=== PATIENT | male | born 1960 | race Caucasian/White ===

== ENCOUNTER 2019-03-21 18:14 | Inpatient (IN) | payer SELFPAY ==
[~2019-03-21] VITALS: Ht 175.3 cm; Wt 123.8 kg
--- NOTE | 2019-03-21 18:14 | NUR ---
BIB RA 881 FROM HOME,C/O GENERALIZED BODY PAIN SINCE HE FELL GETTING OUT OF BED A WEEK AGO, PT AWAKE, ALERT, -SOB, NAD NOTED, VSS, PENDING MD RÍOS
[2019-03-21] MEDS ORDERED: FUROSEMIDE 40 MG/4 ML VIAL IV ONE (19:30)
[2019-03-21] MEDS ORDERED: FUROSEMIDE 40 MG/4 ML VIAL ONE (19:58)
[2019-03-21 20:08] LABS: CALCIUM, SERUM 9.6 mg/dL (8.5-10.1); CARBON DIOXIDE 30 mmol/L (21-32); CHLORIDE 105 mmol/L (98-107); CREATININE 0.8 mg/dL (0.6-1.3); GLUCOSE 93 mg/dL (74-106); POTASSIUM 4.2 mmol/L (3.5-5.1); SODIUM SERUM 142 mmol/L (136-145); UREA NITROGEN, BLOOD 13 mg/dL (7-18)
[2019-03-21 20:23] LABS: BASOPHILS % (AUTO) 0.3 % (0.0-2.0); EOSINOPHILS % (AUTO) 0.8 % (0.0-6.0); HEMATOCRIT 43 % (39-51); HEMOGLOBIN 14.2 g/dL (13.5-17.5); LYMPHOCYTES % (AUTO) 13.3 % (20.0-44.0); MEAN CORPUSCULAR HGB CONC 33 g/dl (31.0-36.0); MEAN CORPUSCULAR VOLUME 91 fL (80-96); MONOCYTES # (AUTO) 0.9 /CMM (0.1-1.30); NEUTROPHILS # (AUTO) 5.8 /CMM (1.8-8.9); NEUTROPHILS % (AUTO) 74.6 % (43.0-81.0); PLATELET COUNT (AUTO) 214 /CMM (150-450); WHITE BLOOD COUNT (AUTO) 7.8 K/uL (4.3-11.0)
--- NOTE | 2019-03-21 20:25 | NUR ---
URINE COLLECTED AND SENT TO LAB
[2019-03-21 20:26] LABS: ALANINE AMINOTRANSFERASE 20 U/L (12-78); ALBUMIN 3.7 g/dL (3.4-5.0); ALKALINE PHOSPHATASE 84 U/L (46-116); ASPARTATE AMINOTRANSFERASE 17 U/L (15-37); BILIRUBIN,DIRECT 0.1 mg/dL (0.0-0.2); BILIRUBIN,TOTAL 0.7 mg/dL (0.2-1.0); TOTAL PROTEIN, SERUM 7.1 g/dL (6.4-8.2)
--- NOTE | 2019-03-21 20:40 | NUR ---
panel call in progress
--- NOTE | 2019-03-21 20:42 | NUR ---
called rn sup for bed, waiting for bed assignment
[2019-03-21 20:48] LABS: APPEARANCE,URINE Clear (CLEAR); BILIRUBIN,URINE SMALL (NEGATIVE); BLOOD, URINE Negative Ery/uL (NEGATIVE); COLOR,URINE Yellow (YELLOW); KETONES,URINE 40 (NEGATIVE); LEUKOCYTE ESTERASE ,URINE Negative (NEGATIVE); NITRITE, URINE Negative (NEGATIVE); PROTEIN,URINE Negative (NEGATIVE); UGLUCOSE Negative (NEGATIVE)
[2019-03-21 21:01] LABS: BACTERIA,URINE None seen /HPF (None Seen); RBC,URINE 0-2 /HPF (0-2); SQUAMOUS EPITHELIAL CELL,UR Few /HPF (None Seen); WBC,URINE 0-2 /HPF (0-3)
[2019-03-21] MEDS ORDERED: MAG HYDROX/AL HYDROX/SIMETH 30 ML UDC PO PRN (21:30)
[2019-03-21] MEDS ORDERED: ONDANSETRON HCL/PF 4 MG/2 ML VIAL IVP PRN (21:30)
[2019-03-21] MEDS ORDERED: MAGNESIUM HYDROXIDE 30 ML UDC PO PRN (21:30)
[2019-03-21] MEDS ORDERED: ACETAMINOPHEN 325 MG TABLET PO PRN (21:30)
[2019-03-21] MEDS ORDERED: Z GUARD REMEDY 2 OZ OINT TP PRN (21:30)
[2019-03-21] MEDS ORDERED: ZOLPIDEM TARTRATE 5 MG TABLET PO PRN (21:30)
[2019-03-21 22:00] VITALS: BP 147/89
--- NOTE | 2019-03-21 22:00 | NUR ---
MS/RN NEW ADMISSION NOTES RECEIVED PATIENT ON A GURNEY ACCOMPANIED BY RN AND ER ATTENDANT, PATIENT AWAKE, ALERT X3, REQUIRE ASSISTANCE IN ALL ADLS, UNABLE TO STAND UNASSISTED AND WITH LOWER LEG AND FEET PAIN BILATERAL.,MORBID OBESE WITH SWOLLEN AND RED INFLAMED BILATERAL LEGS WHO LIVES ALONE AND OCCASIONAL HELP , WITH DX OF BLE EDEMA AND PAIN. REPORTE NO MEDICATION TAKEN EXCEPT NEEDED OVER THE COUNTER ALEVE, PATIENT REQUIRE PT, LOVENOX, PAIN MANAGEMEMT, CASE MANAGEMENT AND KENO CLERK, REPORTED NO INSURANCE. PHOTOS TAKEN ON WOUND. USES URINAL AND ON LASIX TO RELIEVE EDEMA. WILL MONITOR. BELONGINGS RECEIVED AND CHECK, WITH MONEY AND CREDIT CARDS, AND HOUSE KEYS TO BE KEPT SAFE OF LINING MECHANIC. WILL MONITOR.BED LOCKED, CALL LIGHTS WITHIN REACH.
--- NOTE | 2019-03-21 22:01 | NUR ---
PT TRANSPORTED TO 2ND FLOOR MS
[2019-03-21] MEDS: ENOXAPARIN SODIUM 40 MG/0.4 ML DISP.SYRIN SQ SCH (23:25)
[2019-03-21] MEDS: FUROSEMIDE 40 MG/4 ML VIAL IV SCH (23:27)
[2019-03-22 00:19] VITALS: BP 147/89
[2019-03-22] MEDS: HYDROCODONE/APAP 5/325MG 1 EACH TABLET PO PRN ×2 (01:22→10:05)
--- NOTE | 2019-03-22 02:19 | NUR ---
MS/RN NOTES PER LIANG ALEJO, ACCEPTING DOCTOR ORDERED FOR VANCOMYCIN PHARMACY TO DOSE ON BLE LEG CELLULITIS. ORDER CARRIED OUT.
[2019-03-22] MEDS ORDERED: VANCOMYCIN 1 GM VIAL ONE (02:26)
[2019-03-22] MEDS ORDERED: VANCOMYCIN 1 GM in IV D5W 250 ML IV ONE (02:30)
--- NOTE | 2019-03-22 03:53 | NUR ---
MS/RN NOTES MS TAVERA ORDERED FOR EKG, RT AT BEDSIDE. TO MONITOR.
[2019-03-22] MEDS: FUROSEMIDE 40 MG/4 ML VIAL IV SCH ×3 (05:55→17:39)
--- NOTE | 2019-03-22 06:34 | NUR ---
MS/RN CLOSING NOTES PATIENT ABLE TO SLEEP FEW HOURS, REPOSITIONED FOR COMFORT, OFF LOAD EXTREMITIED, WOUUND DRESSING AND TREATMENT DONE. ANTIBIOTIC VANCO GIVEN PER MD ORDER , MONITORED FOR PAIN. KEPT SKIN INTACT AND DRY, ASSISTED WITH URINAL, LASIX ORDERED FOR SWOLLEN AND EDEMA ON BLE. KEPT CALL LIGHTS AND BELONGINGS WITHIN REACH. WILL ENDORE TO AM RN FOR NADIA. BED LOCKED.
--- NOTE | 2019-03-22 07:20 | NUR ---
MS RN NOTES RECEIVED PATIENT IN BED, AWAKE, A/O X 3. PATIENT ON ROOM AIR BREATHING EVENLY AND UNLABORED WITH NO ACUTE SIGNS OF DISTRESS. RAC GAUGE # 20 PRESENT AND INTACT. FLUSHING WELL AND NO SIGNS OF INFILTRATION AT THIS TIME. SAFETY PRECAUTIONS IN PLACE: BED IN LOW POSITION AND LOCKED, RAILS UP X 2, CALL LIGHT WITHIN REACH. WILL CONTINUE TO MONITOR PATIENT.
[2019-03-22 07:21] LABS: BASOPHILS % (AUTO) 0.7 % (0.0-2.0); EOSINOPHILS % (AUTO) 1.9 % (0.0-6.0); HEMATOCRIT 42 % (39-51); LYMPHOCYTES # (AUTO) 1.6 /CMM (0.8-4.8); LYMPHOCYTES % (AUTO) 25.5 % (20.0-44.0); MEAN CORPUSCULAR HGB CONC 33 g/dl (31.0-36.0); MEAN CORPUSCULAR VOLUME 91 fL (80-96); MONOCYTES # (AUTO) 0.9 /CMM (0.1-1.30); MONOCYTES % (AUTO) 14.5 % (2.0-12.0); NEUTROPHILS # (AUTO) 3.5 /CMM (1.8-8.9); NEUTROPHILS % (AUTO) 57.4 % (43.0-81.0); PLATELET COUNT (AUTO) 221 /CMM (150-450); RED BLOOD CELL COUNT(AUTO) 4.64 MIL/uL (4.5-6.0); WHITE BLOOD COUNT (AUTO) 6.1 K/uL (4.3-11.0)
[2019-03-22] MEDS ORDERED: FEE PK DOSING 1 MIN EA MC ONE (07:22)
[2019-03-22 07:54] LABS: CALCIUM, SERUM 9.1 mg/dL (8.5-10.1); CREATININE 0.9 mg/dL (0.6-1.3); PHOSPHORUS 4.7 mg/dL (2.5-4.9); POTASSIUM 3.9 mmol/L (3.5-5.1)
[2019-03-22 08:35] VITALS: BP 127/63
[2019-03-22 08:49] LABS: THYROID STIMULATING HORMONE 1.548 uIU/mL (0.358-3.74)
[2019-03-22] MEDS: VANCOMYCIN 1.25 GM in IV D5W 250 ML IV SCH ×2 (09:40→22:20)
--- NOTE | 2019-03-22 10:27 | NUR ---
WOUND CARE CONSULT: PT PRESENTS WITH LEFT LOWER LEG WOUND, REDNESS WITH EDEMA TO LOWER LEGS, AND RASHES TO ABDOMINAL/GROIN FOLDS, PERINEUM AND INNER BUTTOCKS, PRESENT ON ADMISSION. RECOMMEND DPM CONSULT. RECOMMENDATIONS MADE FOR SKIN CARE AND PROTECTION. DISCUSSED WITH NURSING STAFF. DEFER TO PODIATRY FOR LOWER EXTREMITIES. WILL SEE PRN. CURRENT RAMIREZ SCORE IS 15. MD IN AGREEMENT WITH PLAN OF CARE. Addendum: 03/22/19 at 1029 by JANE HOUSTON WNDNU Amended: Links added.
[2019-03-22] MEDS: CLOTRIMAZOLE 1% 15 GM TUBE TP SCH ×2 (11:33→16:59)
--- NOTE | 2019-03-22 12:03 | NUR ---
Social service consult requested by Dr. Garcia for transitional care and help with insurance. Pt. is a 58 year old male who was admitted to [facility] for edema/weakness. SW met with the pt. bedside. Pt. is alert and oriented x 4. Pt's friend's were visiting bedside. Pt's friend's left the room while SW conducted the assessment. Pt. states he resides in an apartment located at [address] [place] [address], [address] in [place]. Pt. states he has a friend who assists him in getting groceries etc. 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 fell at work and has been on disability and workers compensation. Pt. states, he lost his medical insurance is June and has no medical coverage at this time. [facility] dispute coordinator has met with the pt. and will refer pt. to insurance liaison if required. Pt. has an tax associate attorney representing him for his workers compensation case. Pt. has ACCESS transportation to his medical appointments that was set up by workers comp. Pt. states he feels depressed and anxious at times and has suicidal ideations once in a while, however he has no plan and stated, " I know better than to hurt myself." Pt currently denies suicidal and homicidal ideations. Pt. does not take any psychotropic medications. Pt. does not smoke cigarettes or use drugs. Pt. states, he drinks whiskeyonce in a while. Pt. states he would like to try CBD oil for his pain. Pt. currently does not receive any home health services at home. marketing development manager to follow up with the pt. in regards to board and care facility since pt. needs assistance with his ADL's. No other social service needs are requested at this time. SW is available, if needed.
[2019-03-22 17:01] VITALS: BP 146/77
--- NOTE | 2019-03-22 18:47 | NUR ---
MS RN CLOSING NOTES PATIENT IN BED ASLEEP AT THIS TIME. A/O X4. ABLE TO MAKE NEEDS KNOWN, BREATHING EFFORTLESSLY ON ROOM AIR WITH NO SIGNS OF SOB PRESENT. SL ON RIGHT AC PATENT, INTACT AND FLUSHING WELL. NO SIGNS OF INFILTRATION NOTED AT THE SITE NOTED. ALL NEEDS AND CARE PROVIDED DURING THE SHIFT. SAFETY PRECAUTIONS IN PLACE: BED IN LOW POSITION AND LOCKED, RAILS UP X 2, CALL LIGHT WITHIN REACH. WILL ENDORSE TO DIE REPAIRER STAMPING NURSE FOR NADIA.
--- NOTE | 2019-03-22 20:00 | NUR ---
MS RN NOTES RECEIVED PATIENT ASLEEP IN BED WITH NO DISTRESS NOTED. CALL LIGHT WITHIN REACH. PERIPHERAL LINE INTACT AND PATENT. ROOM FREE OF CLUTTER AND BELONGINGS KEPT NEAR BEDSIDE. BED IN LOW LOCK SETTING WITH BED ALARM ON AND FUNCTIONING PROPERLY. WILL CONTINUE TO MONITOR
[2019-03-22 20:50] VITALS: BP 117/62
[2019-03-22] MEDS: ENOXAPARIN SODIUM 40 MG/0.4 ML DISP.SYRIN SQ SCH (22:20)
[2019-03-23] MEDS: FUROSEMIDE 40 MG/4 ML VIAL IV SCH ×5 (00:16→23:51)
--- NOTE | 2019-03-23 06:27 | NUR ---
MS RN NOTES PATIENT ASLEEP IN BED WITH NO DISTRESS NOTED. CALL LIGHT WITHIN REACH. ALL DUE MEDS GIVEN ORDERED WITH NO ASE NOTED. PERIPHERAL LINE INTACT AND PATENT. BED IN LOW LOCK SETTING. ALL BELONGINGS KEPT NEAR BEDSIDE. WILL ENDORSE TO ONCOMING SHIFT.
[2019-03-23 07:12] LABS: BASOPHILS % (AUTO) 0.4 % (0.0-2.0); EOSINOPHILS % (AUTO) 1.9 % (0.0-6.0); HEMATOCRIT 42 % (39-51); HEMOGLOBIN 14.3 g/dL (13.5-17.5); LYMPHOCYTES # (AUTO) 1.8 /CMM (0.8-4.8); MEAN CORPUSCULAR HGB CONC 34 g/dl (31.0-36.0); MEAN CORPUSCULAR VOLUME 90 fL (80-96); MONOCYTES # (AUTO) 0.8 /CMM (0.1-1.30); MONOCYTES % (AUTO) 13.3 % (2.0-12.0); NEUTROPHILS # (AUTO) 3.2 /CMM (1.8-8.9); NEUTROPHILS % (AUTO) 54.4 % (43.0-81.0); PLATELET COUNT (AUTO) 223 /CMM (150-450); RED BLOOD CELL COUNT(AUTO) 4.67 MIL/uL (4.5-6.0); WHITE BLOOD COUNT (AUTO) 5.9 K/uL (4.3-11.0)
[2019-03-23 07:29] LABS: CALCIUM, SERUM 9.1 mg/dL (8.5-10.1); CREATININE 0.8 mg/dL (0.6-1.3); MAGNESIUM 2.1 mg/dL (1.8-2.4); PHOSPHORUS 4.2 mg/dL (2.5-4.9); POTASSIUM 4.1 mmol/L (3.5-5.1)
--- NOTE | 2019-03-23 07:59 | NUR ---
M/S RN OPENING NOTES RECEIVED PT ON BED, A/OX4, RESPONSIVE TO ALL STIMULI. RESPIRATION EVEN AND UNLABORED WITH NO ACUTE RESPIRATORY DISTRESS, HEAD OF BED ELEVATED, LUNGS CLEARED BILATERALLY. ABD SOFT AND NON DISTENDED WITH ACTIVE BOWEL SOUNDS, USES URINAL, CONTINENT B&B. DENIES PAIN AND DISCOMFORT. SKIN WARM TO TOUCH AND DRY. ELEVATE BOTH LEGS TOLERATED, PITTING EDEMA +2. IV SITE AT RIGHT AC #20, PATENT IN FLUSHING, NO S/SX ON INFILTRATION. PT CONCERN ATTENDED. CALL LIGHT WITHIN REACH. WILL CONTINUE TO MONITOR CARE.
[2019-03-23 08:00] VITALS: BP 124/73
[2019-03-23] MEDS: CLOTRIMAZOLE 1% 15 GM TUBE TP SCH ×2 (08:38→17:25)
[2019-03-23] MEDS: VANCOMYCIN 1.25 GM in IV D5W 250 ML IV SCH ×2 (09:56→22:06)
--- NOTE | 2019-03-23 13:15 | NUR ---
M/S RN NOTES PT SEEN BY MILITARY POLICE OFFICER. WOUND CULTURE COLLECTED. PT TOLERATED WELL. CALLED LAB FOR [facility].
--- NOTE | 2019-03-23 15:11 | NUR ---
M/S RN NOTES PT SEEN BY LAURA LEHMAN ORGAN ASSEMBLER, PT TO BE FOLLOWED BY DR. PINO AND WILL START THE DC PLANNING AFTER ANY TREATMENT PLANS. PT AWARE.
[2019-03-23 16:00] VITALS: BP 133/76
--- NOTE | 2019-03-23 18:37 | NUR ---
M/S RN CLOSING NOTES PT A/O X4, RESPONSIVE TO ALL STIMULI. NO PRESENCE OF ACUTE RESPIRATORY DISTRESS. ABD SOFT AND NON DISTENDED, NO BM TODAY WITH POSITIVE FLATULENCE. DENIES PAIN AND DISCOMFORT. SKIN WARM TO TOUCH AND DRY, NO NEW OPEN SKIN BREAKDOWN, BLE +2 PITTING EDEMA, ELEVATED AND HEELS OFF LOAD. TREATMENT PROVIDED AND TOLERATED WELL. RIGHT AC GAUGE 20 PATENT IN FLUSHING, SITE WITH NO S/SX ON INFILTRATION. ALL CARE ATTENDED. CALL LIGHT WITHIN REACH. BED IN LOCKED POSITION, SEMI LARIOS AND LOW. ENDORSED PATIENT TO NEXT NURSE.
--- NOTE | 2019-03-23 19:30 | NUR ---
MS RN NOTE: PATIENT RESTING IN BED, NO ACUTE DISTRESS NOTED. BREATHING EVEN AND UNLABORED, NO SOB NOTED. IV TO RAC IN PLACE. BED LOCKED AND IN LOWEST POSITION, CALL LIGHT IN REACH. WILL CONTINUE TO MONITOR.
[2019-03-23 20:10] VITALS: BP 120/68
[2019-03-23] MEDS: ENOXAPARIN SODIUM 40 MG/0.4 ML DISP.SYRIN SQ SCH (22:06)
--- NOTE | 2019-03-24 02:15 | NUR ---
MS RN NOTE: PATIENT SLEEPING IN BED, NO ACUTE DISTRESS NOTED. BREATHING EVEN AND UNLABORED, NO SOB NOTED. IV TO RAC IN PLACE. BED LOCKED AND IN LOWEST POSITION, CALL LIGHT IN REACH. WILL CONTINUE TO MONITOR.
[2019-03-24] MEDS: FUROSEMIDE 40 MG/4 ML VIAL IV SCH ×3 (06:12→18:00)
--- NOTE | 2019-03-24 06:15 | NUR ---
MS RN NOTE: PATIENT RESTING IN BED, NO ACUTE DISTRESS NOTED. BREATHING EVEN AND UNLABORED, NO SOB NOTED. IV TO RAC IN PLACE. BED LOCKED AND IN LOWEST POSITION, CALL LIGHT IN REACH. WILL ENDORSE TO DAY NURSE TO CONTINUE WITH PLAN OF CARE
[2019-03-24 07:26] LABS: BASOPHILS # (AUTO) 0.1 /CMM (0.0-0.2); BASOPHILS % (AUTO) 1.2 % (0.0-2.0); EOSINOPHILS % (AUTO) 4.4 % (0.0-6.0); HEMATOCRIT 45 % (39-51); LYMPHOCYTES # (AUTO) 1.7 /CMM (0.8-4.8); MEAN CORPUSCULAR HGB CONC 33 g/dl (31.0-36.0); MEAN CORPUSCULAR VOLUME 90 fL (80-96); MONOCYTES # (AUTO) 0.7 /CMM (0.1-1.30); MONOCYTES % (AUTO) 12.1 % (2.0-12.0); NEUTROPHILS # (AUTO) 3.4 /CMM (1.8-8.9); NEUTROPHILS % (AUTO) 55.3 % (43.0-81.0); PLATELET COUNT (AUTO) 221 /CMM (150-450); RED BLOOD CELL COUNT(AUTO) 4.99 MIL/uL (4.5-6.0); WHITE BLOOD COUNT (AUTO) 6.2 K/uL (4.3-11.0)
[2019-03-24 07:44] LABS: CALCIUM, SERUM 9.2 mg/dL (8.5-10.1); CREATININE 0.9 mg/dL (0.6-1.3); MAGNESIUM 2.1 mg/dL (1.8-2.4); PHOSPHORUS 4.2 mg/dL (2.5-4.9); POTASSIUM 3.7 mmol/L (3.5-5.1)
[2019-03-24 08:00] VITALS: BP 114/69
[2019-03-24] MEDS: VANCOMYCIN 1.25 GM in IV D5W 250 ML IV SCH (09:12)
[2019-03-24] MEDS: CLOTRIMAZOLE 1% 15 GM TUBE TP SCH ×2 (09:13→17:17)
[2019-03-24] MEDS ORDERED: DOXY100C2 PO (15:17)
[2019-03-24] MEDS ORDERED: FURO-144 PO (15:17)
--- NOTE | 2019-03-24 15:50 | NUR ---
wound dressing changed, wound care provided as ordered. Discharge pictures taken and placed in the chart
[2019-03-24 16:00] VITALS: BP 116/68
--- NOTE | 2019-03-24 18:27 | NUR ---
Patient cleared for discharge by MD. Patient alert and oriented x4 , needs assistance with ADL's. Patient refused Board & Care and going back to home. Discharge instructions and education provided: patient verbalized understanding. All needs attended. Patient sighed valuable form and all belongings with the patient including kearney , ID, keys and cell phone with the automation qa analyst. Provided patient with clothes. Prescription provided, patient educated of sight effects. D/C pictures taken and place in the chart. Transportation arranged for 2000pm. Will endorse to next shift for NADIA.
--- NOTE | 2019-03-24 19:05 | NUR ---
MS RN NOTES RECEIVED PT IN BED RESTING BUT EASILY AWOKEN VERBALLY OR BY TOUCH. PT A/O X3 AND ABLE TO MAKE NEEDS KNOWN. NO COMPLAINTS OF PAIN AT THIS TIME. RESPIRATIONS EVEN AND UNLABORED WITH NO S/S OF ACUTE DISTRESS OR SOB NOTED. PT WITH RAC IV PATENT AND INTACT. PT AWAITING TRANSPORT. SAFETY MEASURES IN PLACE WITH BED IN LOWEST LOCKED POSITION WITH SIDE RAILS UP X2. CALL LIGHT WITHIN REACH. WILL CONTINUE TO MONITOR.
[2019-03-24 19:25] VITALS: BP 116/67
--- NOTE | 2019-03-24 20:15 | NUR ---
MS RN NOTES PT REFUSED CLOTHES GIVEN TO HIM BECAUSE CLOTHES ARE TOO SMALL. WILL CONTINUE TO MONITOR.
--- NOTE | 2019-03-24 20:20 | NUR ---
MS CONSERVATION TECHNICIAN NOTES PT LEAVING VIA AMBULANCE IN STABLE CONDITION TO HOME. PT A/O X3 AND ABLE TO MAKE NEEDS KNOWN. NO COMPLAINTS OF PAIN AT THIS TIME. RESPIRATIONS EVEN AND UNLABORED WITH NO S/S OF ACUTE DISTRESS OR SOB NOTED. PT RAC IV REMOVED. DISCHARGE ORDERS/INFORMATION WENT OVER AND PT VERBALIZED UNDERSTANDING. PT ID ALSO REMOVED. BELONGINGS GIVEN AND BELONGING LIST SIGNED AND PT DENIED ANY MISSING ITEMS.
== END 2019-03-24 20:20 | disposition home health service (06) | DRG 603 ==
LOC: ER 18:16 → MEDSG2 21:33
PROVIDERS: ATTEND Hospitalist
DX: L03.116 Cellulitis of left lower limb (principal); Z68.41 Body mass index [BMI] 40.0-44.9, adult; L97.929 Non-pressure chronic ulcer of unspecified part of left lower leg with unspecified severity; I87.8 Other specified disorders of veins; L03.115 Cellulitis of right lower limb; E66.01 Morbid (severe) obesity due to excess calories; I10 Essential (primary) hypertension; B35.1 Tinea unguium; M62.81 Muscle weakness (generalized); G62.9 Polyneuropathy, unspecified; M48.00 Spinal stenosis, site unspecified; S90.122A Contusion of left lesser toe(s) without damage to nail, initial encounter; X58.XXXA Exposure to other specified factors, initial encounter; Y92.89 Other specified places as the place of occurrence of the external cause
CPT/HCPCS: 36415; 71045-TC; 80048-TC; 80061-TC; 80076-TC; 80202-TC; 81000-TC; 83735-TC; 83880; 84100-TC; 84443-TC; 84484-TC; 85025-TC; 85730-TC; 87070-TC; 87081-TC; 87086-TC; 93307-TC; 93970-TC; 97116-TC; 97530-TC; A6403; G0378; J1650; J1940; J3370; J7060

== ENCOUNTER 2019-07-14 10:57 | Inpatient (IN) | payer OTHER ==
[~2019-07-14] VITALS: Ht 175.3 cm; Wt 118.8 kg
[~2019-07-14 10:57] MED LIST: DOXY100C2 PO; FURO-144 PO
--- NOTE | 2019-07-14 11:01 | NUR ---
BIBRA 878 FROM HOME, C/O L LEG PAIN. PATIENT STATED "LEAKING TODAY". NOTED WITH BILATERAL LOWER EXTREMITY +4 EDEMA. "SWELLING HAS BEEN ONGOING x 4 YEARS". TO ER BED 7, HOOKED TO MONITOR, CHANGED TO HOSP GOWN, WARM BLANKET PROVIDED. PATIENT AOx4, BREATHING EVEN AND UNLABORED. DR SALCEDO AT BEDSIDE
[2019-07-14] MEDS ORDERED: PIPERACILLIN /TAZOBACTAM 3.375 G VIAL IV ONE (11:29)
[2019-07-14] MEDS ORDERED: PIPERACILLIN /TAZOBACTAM 3.375 G in IV D5W 50 ML IV ONE (11:30)
[2019-07-14 11:42] LABS: BASOPHILS % (AUTO) 0.6 % (0.0-2.0); HEMATOCRIT 43 % (39-51); HEMOGLOBIN 14.3 g/dL (13.5-17.5); LYMPHOCYTES # (AUTO) 1.5 /CMM (0.8-4.8); LYMPHOCYTES % (AUTO) 25.7 % (20.0-44.0); MEAN CORPUSCULAR HGB CONC 33 g/dl (31.0-36.0); MEAN CORPUSCULAR VOLUME 91 fL (80-96); MONOCYTES # (AUTO) 0.6 /CMM (0.1-1.30); MONOCYTES % (AUTO) 11.3 % (2.0-12.0); NEUTROPHILS # (AUTO) 3.3 /CMM (1.8-8.9); NEUTROPHILS % (AUTO) 58.4 % (43.0-81.0); PLATELET COUNT (AUTO) 224 /CMM (150-450); RED BLOOD CELL COUNT(AUTO) 4.75 MIL/uL (4.5-6.0); WHITE BLOOD COUNT (AUTO) 5.7 K/uL (4.3-11.0)
[2019-07-14 11:52] LABS: CALCIUM, SERUM 9.3 mg/dL (8.5-10.1); CARBON DIOXIDE 31 mmol/L (21-32); CHLORIDE 101 mmol/L (98-107); CREATININE 0.8 mg/dL (0.6-1.3); GLUCOSE 98 mg/dL (74-106); SODIUM SERUM 139 mmol/L (136-145); UREA NITROGEN, BLOOD 16 mg/dL (7-18)
[2019-07-14 11:59] LABS: ALANINE AMINOTRANSFERASE 14 U/L (12-78); ALBUMIN 3.7 g/dL (3.4-5.0); ALKALINE PHOSPHATASE 106 U/L (46-116); ASPARTATE AMINOTRANSFERASE 20 U/L (15-37); BILIRUBIN,DIRECT 0.1 mg/dL (0.0-0.2); BILIRUBIN,TOTAL 0.5 mg/dL (0.2-1.0); TOTAL PROTEIN, SERUM 7.3 g/dL (6.4-8.2)
[2019-07-14] MEDS ORDERED: FURO40TA5 PO (12:00)
--- NOTE | 2019-07-14 12:08 | NUR ---
CALLED CONSTANZA CROWLEY
--- NOTE | 2019-07-14 13:04 | NUR ---
315-1 [facility]
--- NOTE | 2019-07-14 13:24 | NUR ---
REPORT GIVEN TO JESENIA RIDDLE OF MS UNIT
[2019-07-14 14:00] VITALS: BP 139/81
--- NOTE | 2019-07-14 15:15 | NUR ---
MS LASER ENGINEER NOTES RECEIVED PT FROM ER DEPT VIA SHREYA. PT A/OX4. PT TOLERATING RA WITH NO ACUTE RESPIRATORY DISTRESS NOTED. PT DENIES ANY PAIN AND DISCOMFORT AT THIS TIME. PT PROVIDED HISTORY. SKIN ASSESSED, PICTURES TAKEN. PIV TO RAC G20, FLUSHED WITH NS, INTACT AND OPERATIONAL. KEPT COMFORTABLE IN BED. PT'S BED IN LOWEST, LOCKED POSITION WITH SRX3. CALL LIGHT KEPT WITHIN REACH. WILL CONTINUE PLAN OF CARE. PAGED DR CROWLEY FOR ADMISSION ORDERS.
[2019-07-14] MEDS ORDERED: ACETAMINOPHEN 325 MG TABLET PO PRN (16:00)
[2019-07-14] MEDS ORDERED: ZOLPIDEM TARTRATE 5 MG TABLET PO PRN (16:00)
[2019-07-14] MEDS ORDERED: MAG HYDROX/AL HYDROX/SIMETH 30 ML UDC PO PRN (16:00)
[2019-07-14] MEDS ORDERED: MORPHINE SULFATE INJ 2 MG/ML DISP.SYRIN IV PRN (16:00)
[2019-07-14] MEDS ORDERED: Z GUARD REMEDY 2 OZ OINT TP PRN (16:00)
[2019-07-14] MEDS ORDERED: HYDROCODONE/APAP 5/325MG 1 EACH TABLET PO PRN (16:00)
[2019-07-14] MEDS ORDERED: ONDANSETRON HCL/PF 4 MG/2 ML VIAL IVP PRN (16:00)
[2019-07-14] MEDS ORDERED: MAGNESIUM HYDROXIDE 30 ML UDC PO PRN (16:00)
[2019-07-14] MEDS: ENOXAPARIN SODIUM 40 MG/0.4 ML DISP.SYRIN SQ SCH (16:59)
[2019-07-14] MEDS ORDERED: CEFEPIME 1 GM in IV NS 0.9% 50 ML IV SCH (19:00)
[2019-07-14 20:00] VITALS: BP 134/89
--- NOTE | 2019-07-14 20:03 | NUR ---
MS RN NOTES SEEN AND EVALUATED BY ID/FERNANDEZ, NEW ORDERS NOTED. IV ANTIBIOTIC CEFEPIME, MADE AWARE OF CHARGE NURSE WELL.
--- NOTE | 2019-07-14 20:29 | NUR ---
MS RN NOTES IV CEFEPIME ORDER FAXED TO NURSING ELECTRONIC IMAGER. AWAITING FOR DRUG TO BE AVAILABLE IN THE UNIT.
[2019-07-14] MEDS ORDERED: CEFEPIME 1 GM VIAL ONE (21:42)
[2019-07-14] MEDS: CLINDAMYCIN IV RTU IN D5W 900 MG/50 ML PIGGYBACK IV SCH (22:13)
--- NOTE | 2019-07-14 22:20 | NUR ---
MS RN NOTES PT REMAINS IN BED, AWAKE, A/O X4. PT TOLERATING RA, WITH NO ACUTE RESPIRATORY DISTRESS NOTED. PT DENIES ANY PAIN OR DISCOMFORT AT THIS TIME. ON GOING IV CEFEPIME TO RAC G20, INTACT AND NO INFILTRATION NOTED. ALL NEEDS AND CARE ATTENDED. CALL LIGHT KEPT WITHIN REACH. ENDORSED TO NIGHT NURSE/[place] FOR NADIA.
--- NOTE | 2019-07-14 22:45 | NUR ---
MS RN NOTES RECEIVED PATIENT FROM JANESSA ROGERS. WILL CONTINUE TO MONITOR THROUGHOUT THE NIGHT.
[2019-07-14] MEDS ORDERED: CLINDAMYCIN 900 MG/6 ML VIAL ONE (23:08)
--- NOTE | 2019-07-14 23:27 | NUR ---
MS RN NOTES ADMINISTERED CEFEPIME DELAYED, JUST RECEIVED FROM NURSING MECHANICAL PROCESS ENGINEER.
[2019-07-15] MEDS: CLINDAMYCIN IV RTU IN D5W 900 MG/50 ML PIGGYBACK IV SCH ×3 (04:30→21:00)
--- NOTE | 2019-07-15 06:55 | NUR ---
MS RN CLOSING NOTES PATIENT CURRENTLY RESTING IN BED A/O X 4. STABLE ON RA BREATHING EVEN AND UNLABORED, NO SOB NOTED. NO SIGNS OF ACUTE DISTRESS. NO COMPLAINTS OF PAIN OR DISCOMFORT AT THE MOMENT. IV LOCATED ON R AC #20 SL. PATIENT WAS KEPT CLEAN AND DRY THROUGHOUT THE NIGHT- ALL NEEDS ATTENDED TO. SAFETY PRECAUTIONS IN PLACE WITH BED IN LOWEST POSITION, CALL LIGHT WITHIN REACH, BREAKS ON, AND SIDE RAILS UP. WILL ENDORSE TO ONCOMING SHIFT ABOUT NADIA.
[2019-07-15 07:35] LABS: BASOPHILS % (AUTO) 0.5 % (0.0-2.0); EOSINOPHILS % (AUTO) 2.4 % (0.0-6.0); HEMATOCRIT 39 % (39-51); HEMOGLOBIN 12.9 g/dL (13.5-17.5); LYMPHOCYTES # (AUTO) 1.5 /CMM (0.8-4.8); LYMPHOCYTES % (AUTO) 25.1 % (20.0-44.0); MEAN CORPUSCULAR HGB CONC 34 g/dl (31.0-36.0); MEAN CORPUSCULAR VOLUME 91 fL (80-96); MONOCYTES # (AUTO) 0.8 /CMM (0.1-1.30); MONOCYTES % (AUTO) 12.8 % (2.0-12.0); NEUTROPHILS # (AUTO) 3.6 /CMM (1.8-8.9); NEUTROPHILS % (AUTO) 59.2 % (43.0-81.0); PLATELET COUNT (AUTO) 196 /CMM (150-450); RED BLOOD CELL COUNT(AUTO) 4.24 MIL/uL (4.5-6.0)
--- NOTE | 2019-07-15 07:47 | NUR ---
MS RN OPENING NOTES RECEIVED IN BED, AWAKE, A/O X4. PT TOLERATING RA, WITH NO ACUTE RESPIRATORY DISTRESS NOTED. PT DENIES ANY PAIN OR DISCOMFORT AT THIS TIME. IVF NS AT TKO RAC G20, INTACT AND NO INFILTRATION NOTED. PT KEPT COMFORTABLE IN BED. CALL LIGHT KEPT WITHIN REACH. PT'S BED IN LOWEST, LOCKED POSITION WITH SRX3. WILL CONTINUE PLAN OF CARE.
[2019-07-15 07:51] LABS: CALCIUM, SERUM 8.6 mg/dL (8.5-10.1); CREATININE 0.6 mg/dL (0.6-1.3); MAGNESIUM 2.1 mg/dL (1.8-2.4); PHOSPHORUS 4.5 mg/dL (2.5-4.9); POTASSIUM 3.7 mmol/L (3.5-5.1)
[2019-07-15 07:58] LABS: THYROID STIMULATING HORMONE 1.756 uIU/mL (0.358-3.74)
[2019-07-15 08:00] VITALS: BP 113/67
[2019-07-15] MEDS: PANTOPRAZOLE 40 MG TABLET.DR PO SCH (08:21)
[2019-07-15] MEDS: CEFEPIME 1 GM in IV D5W 50 ML IV SCH ×2 (08:56→21:23)
--- NOTE | 2019-07-15 10:03 | NUR ---
WOUND CARE CONSULT: PT PRESENTS WITH SWELLING AND REDNESS TO BILATERAL LOWER LEGS WITH CRUSTING AND OPEN WOUND TO LEFT LOWER LEG, PRESENT ON ADMISSION. RECOMMEND DPM CONSULT. DR RUST NOTIFIED. PT STATES IS AMBULATORY. CURRENT RAMIREZ SCORE IS 15. Addendum: 07/15/19 at 1005 by JANE HOUSTON WNDNU Amended: Links added.
--- NOTE | 2019-07-15 11:30 | NUR ---
MS RN NOTES PT HAD VENOUS DUPLEX DOPPLER BILATERAL LOWER EXTREMITY, RESULTS NEGATIVE. HOSPITALIST/SK MADE AWARE, NO NEW ORDERS NOTED.
[2019-07-15] MEDS: METHOCARBAMOL (500MG) 500 MG TABLET PO SCH ×2 (12:13→17:28)
--- NOTE | 2019-07-15 15:00 | NUR ---
MS RN NOTES ARTERIAL DUPLEX DOPPLER WAS DONE TO BILATERAL LOWER EXTREMITIES. FAIR TO GOOD FLOW PER TECH. WILL NOTIFY MD/SK/ PT REQUEST FOR PHYSICAL THERAPY SANODVAL.
[2019-07-15 16:00] VITALS: BP 129/78
--- NOTE | 2019-07-15 18:51 | NUR ---
MS RN CLOSING NOTES PT REMAINS IN BED, AWAKE, A/O X4. PT TOLERATING RA, WITH NO ACUTE RESPIRATORY DISTRESS NOTED. PT DENIES ANY PAIN OR DISCOMFORT AT THIS TIME. IVF NS AT TKO RAC G20, INTACT AND NO INFILTRATION NOTED. PT KEPT COMFORTABLE IN BED. ALL NEEDS AND CARE ATTENDED. CALL LIGHT KEPT WITHIN REACH. PT'S BED IN LOWEST, LOCKED POSITION WITH SRX3. WILL ENDORSE TO INCOMING NIGHT NURSE FOR NADIA.
--- NOTE | 2019-07-15 19:57 | NUR ---
MS RN NOTES RECEIVED PATIENT AWAKE, A/O X4. PT TOLERATING RA, WITH NO SIGNS ACUTE RESPIRATORY DISTRESS NOTED. PT DENIES ANY PAIN OR DISCOMFORT AT THIS TIME. IVF NS AT TKO RAC G20, INTACT AND NO INFILTRATION NOTED. PT KEPT COMFORTABLE IN BED. ALL NEEDS AND CARE ATTENDED.SAFETY MEASURES IN PLACE, CALL LIGHT KEPT WITHIN REACH. PT'S BED IN LOWEST, LOCKED POSITION WITH SRX3. WILL CONTINUE TO MONITOR ACCORDINGLY.
[2019-07-15 20:00] VITALS: BP 129/76
[2019-07-15 20:41] VITALS: BP 129/76
[2019-07-15] MEDS: ENOXAPARIN SODIUM 40 MG/0.4 ML DISP.SYRIN SQ SCH (21:25)
[2019-07-15] MEDS ORDERED: CLINDAMYCIN 900 MG/6 ML VIAL ONE (22:22)
[2019-07-16] MEDS: METHOCARBAMOL (500MG) 500 MG TABLET PO SCH ×4 (00:17→17:11)
[2019-07-16] MEDS: CLINDAMYCIN IV RTU IN D5W 900 MG/50 ML PIGGYBACK IV SCH (04:43)
--- NOTE | 2019-07-16 06:45 | NUR ---
MS RN NOTES ALL NEEDS ATTENDED AND MET, ABLE TO REST AND SLEPT AT INTERVALS, PATIENT AWAKE, A/O X4. PT TOLERATING RA, WITH NO SIGNS ACUTE RESPIRATORY DISTRESS NOTED. PT DENIES ANY PAIN OR DISCOMFORT AT THIS TIME. IVF NS AT TKO RAC G20, INTACT AND NO INFILTRATION NOTED. PT KEPT COMFORTABLE IN BED. ALL NEEDS AND CARE ATTENDED.SAFETY MEASURES IN PLACE, CALL LIGHT KEPT WITHIN REACH. PT'S BED IN LOWEST, LOCKED POSITION WITH SRX3. WOUND DRESSING DONE ORDERED,SECURED AND INTACT.WILL ENDORSE TO AM NURSE FOR CONTINUITY OF CARE.
--- NOTE | 2019-07-16 07:25 | NUR ---
MS RN OPENING NOTE PATIENT IN BED RESTING COMFORTABLY. PATIENT IN NO ACUTE DISTRESS. NO SOB NOTED. PATIENT BREATHING IS EVEN AND UNLABORED. PATIENT IN NO PAIN AT THIS TIME. NO FACIAL GRIMACING NOTED. PATIENT BED ALARM IS ON. SAFETY PRECAUTIONS IN PLACE. PATIENT BED IS LOCKED AND IN LOWEST POSITION. CALL LIGHT WITHIN REACH. WILL CONTINUE TO MONITOR.
[2019-07-16 07:36] LABS: BASOPHILS % (AUTO) 0.5 % (0.0-2.0); EOSINOPHILS % (AUTO) 3.6 % (0.0-6.0); HEMATOCRIT 40 % (39-51); HEMOGLOBIN 13.1 g/dL (13.5-17.5); LYMPHOCYTES # (AUTO) 1.7 /CMM (0.8-4.8); LYMPHOCYTES % (AUTO) 32.9 % (20.0-44.0); MEAN CORPUSCULAR HGB CONC 33 g/dl (31.0-36.0); MEAN CORPUSCULAR VOLUME 92 fL (80-96); MONOCYTES # (AUTO) 0.7 /CMM (0.1-1.30); MONOCYTES % (AUTO) 13.3 % (2.0-12.0); NEUTROPHILS # (AUTO) 2.5 /CMM (1.8-8.9); NEUTROPHILS % (AUTO) 49.7 % (43.0-81.0); PLATELET COUNT (AUTO) 189 /CMM (150-450); RED BLOOD CELL COUNT(AUTO) 4.36 MIL/uL (4.5-6.0); WHITE BLOOD COUNT (AUTO) 5.1 K/uL (4.3-11.0)
[2019-07-16 07:45] LABS: CALCIUM, SERUM 8.5 mg/dL (8.5-10.1); CREATININE 0.7 mg/dL (0.6-1.3); MAGNESIUM 2.1 mg/dL (1.8-2.4); PHOSPHORUS 4.1 mg/dL (2.5-4.9); POTASSIUM 3.9 mmol/L (3.5-5.1)
[2019-07-16 08:00] VITALS: BP 126/73
[2019-07-16] MEDS: CEFEPIME 1 GM in IV D5W 50 ML IV SCH ×2 (08:10→21:45)
[2019-07-16] MEDS: PANTOPRAZOLE 40 MG TABLET.DR PO SCH (08:10)
[2019-07-16] MEDS: CLINDAMYCIN 900 MG in IV D5W 50 ML IV SCH ×2 (13:59→22:21)
[2019-07-16 16:00] VITALS: BP 124/73
--- NOTE | 2019-07-16 19:21 | NUR ---
MS RN CLOSING NOTE PATIENT IN BED RESTING COMFORTABLY. PATIENT IN NO ACUTE DISTRESS. NO SOB NOTED. PATIENT BREATHING IS EVEN AND UNLABORED. PATIENT STATES NO PAIN AT THIS TIME. NO FACIAL GRIMACING NOTED. PATIENT BED ALARM IS ON. PATIENT KEPT CLEAN, DRY AND COMFORTABLE THROUGHOUT SHIFT. PATIENT NEEDS AND CONCERNS ADDRESSED. WOUND CARE PROVIDED ORDERED. PATIENT TURNED AND REPOSITIONED Q2H.SAFETY PRECAUTIONS IN PLACE. PATIENT BED IS LOCKED AND IN LOWEST POSITION. CALL LIGHT WITHIN REACH. WILL ENDORSE CARE TO PM SHIFT FOR NADIA.
--- NOTE | 2019-07-16 19:50 | NUR ---
MS RN NOTES RECEIVED PATIENT AWAKE, A/O X4. PT TOLERATING RA, WITH NO SIGNS ACUTE RESPIRATORY DISTRESS NOTED. PT DENIES ANY PAIN OR DISCOMFORT AT THIS TIME. IVF NS AT TKO RAC G20, INTACT AND NO INFILTRATION NOTED. PT KEPT COMFORTABLE IN BED. ALL NEEDS AND CARE ATTENDED.SAFETY MEASURES IN PLACE, CALL LIGHT KEPT WITHIN REACH. PT'S BED IN LOWEST, LOCKED POSITION WITH SRX3. FOLLOW UP CLINDAMYCIN IV TO PHARMACY, WILL CONTINUE TO MONITOR ACCORDINGLY.
[2019-07-16 20:03] VITALS: BP 130/78
[2019-07-16 20:36] VITALS: BP 130/78
[2019-07-16] MEDS: ENOXAPARIN SODIUM 40 MG/0.4 ML DISP.SYRIN SQ SCH (21:38)
[2019-07-17] MEDS: METHOCARBAMOL (500MG) 500 MG TABLET PO SCH ×4 (00:32→18:15)
[2019-07-17] MEDS: CLINDAMYCIN 900 MG in IV D5W 50 ML IV SCH ×2 (04:45→12:36)
[2019-07-17] MEDS: PANTOPRAZOLE 40 MG TABLET.DR PO SCH (07:37)
[2019-07-17 07:48] LABS: BASOPHILS % (AUTO) 0.3 % (0.0-2.0); EOSINOPHILS % (AUTO) 4.6 % (0.0-6.0); HEMATOCRIT 40 % (39-51); HEMOGLOBIN 13.1 g/dL (13.5-17.5); LYMPHOCYTES # (AUTO) 1.8 /CMM (0.8-4.8); LYMPHOCYTES % (AUTO) 32.4 % (20.0-44.0); MEAN CORPUSCULAR HGB CONC 33 g/dl (31.0-36.0); MEAN CORPUSCULAR VOLUME 91 fL (80-96); MONOCYTES # (AUTO) 0.6 /CMM (0.1-1.30); MONOCYTES % (AUTO) 11.5 % (2.0-12.0); NEUTROPHILS # (AUTO) 2.8 /CMM (1.8-8.9); NEUTROPHILS % (AUTO) 51.2 % (43.0-81.0); PLATELET COUNT (AUTO) 220 /CMM (150-450); WHITE BLOOD COUNT (AUTO) 5.5 K/uL (4.3-11.0)
[2019-07-17 07:59] LABS: CALCIUM, SERUM 8.8 mg/dL (8.5-10.1); CREATININE 0.7 mg/dL (0.6-1.3)
[2019-07-17 08:00] VITALS: BP 123/71
--- NOTE | 2019-07-17 08:14 | NUR ---
MS RN OPENING NOTES RECEIVED PATIENT IN BED, AWAKE, A/O X4. PATIENT ON ROOM AIR BREATHING EVENLY AND WITH NO DISTRESS AT THIS TIME. NO COMPLAINS OF PAIN AT THIS MOMENT. RAC G # 20 INTACT AND FLUSHING WELL. SAFETY PRECAUTIONS IN PLACE; BED IN LOW POSITION AND LOCKED, RAILS UP X2, CALL LIGHT WITHIN REACH. WILL CONTINUE TO MONITOR PATIENT.
[2019-07-17] MEDS: CEFEPIME 1 GM in IV D5W 50 ML IV SCH (09:19)
[2019-07-17] MEDS ORDERED: DOXY100C41 PO (09:20)
[2019-07-17 16:00] VITALS: BP 130/76
--- NOTE | 2019-07-17 19:17 | NUR ---
MS RN CLOSING NOTES PATIENT IN BED, AWAKE, A/O X4. PATIENT ON ROOM AIR BREATHING EVENLY AND WITH NO DISTRESS AT THIS TIME. NO COMPLAINS OF PAIN AT THIS MOMENT. RAC G # 20 INTACT AND FLUSHING WELL. ALL NEEDS ATTENDED THROUGHOUT THE DAY. WAITING TO BE DISCHARGED. SAFETY PRECAUTIONS IN PLACE; BED IN LOW POSITION AND LOCKED, RAILS UP X2, CALL LIGHT WITHIN REACH. WILL CONTINUE TO MONITOR PATIENT.
--- NOTE | 2019-07-17 19:51 | NUR ---
MS LAW SECRETARY NOTES PATIENT AWAKE, A/OX4; BREATHING EVEN AND UNLABORED, TOLERATING ROOM AIR WELL, NO SOB OR S/S OR ACUTE RESPIRATORY DISTRESS NOTED; R AC #20 REMOVED, IV TIP INTACT, NO S/S OF REDNESS, OR BLEEDING; PATIENT DISCHARGED. VITALS STABLE; ACCOMPANIED BY 2 EMT STAFF; PAPERWORK WITH PATIENT, BELONGINGS ACCOUNTED FOR.
[2019-07-18] MEDS ORDERED: LEVO500T2 PO (13:43)
== END 2019-07-17 19:39 | disposition home health service (06) | DRG 603 ==
LOC: ER 11:00 → MED 13:12
PROVIDERS: ADMIT Student in an Organized Health Care Education/Training Program; ATTEND Nurse Practitioner Acute Care
PROC: 0HBRXZZ Excision of Toe Nail, External Approach (ICD-10-PCS; principal; 2019-07-16)
DX: L03.116 Cellulitis of left lower limb (principal); I50.32 Chronic diastolic (congestive) heart failure; I87.312 Chronic venous hypertension (idiopathic) with ulcer of left lower extremity; L97.829 Non-pressure chronic ulcer of other part of left lower leg with unspecified severity; L03.115 Cellulitis of right lower limb; B35.1 Tinea unguium; M62.81 Muscle weakness (generalized); G62.9 Polyneuropathy, unspecified; I11.0 Hypertensive heart disease with heart failure; E66.01 Morbid (severe) obesity due to excess calories; Z68.38 Body mass index [BMI] 38.0-38.9, adult; M48.00 Spinal stenosis, site unspecified; I73.9 Peripheral vascular disease, unspecified; I89.0 Lymphedema, not elsewhere classified; I87.2 Venous insufficiency (chronic) (peripheral)
CPT/HCPCS: 36415; 71045-TC; 80048-TC; 80061-TC; 80076-TC; 83735-TC; 83880; 84100-TC; 84443-TC; 84484-TC; 85025-TC; 87040-TC; 87070-TC; 87081-TC; 87186-TC; 93970-TC; 97112-TC; 97530-TC; A4216; A6253; G0378; J0692; J1650; J2543; J3490; J7030; J7060

== ENCOUNTER 2019-08-11 21:22 | Inpatient (IN) | payer MEDICAID, OTHER ==
[~2019-08-11] VITALS: Ht 175.3 cm; Wt 101.6 kg
[~2019-08-11 21:22] MED LIST changes: -DOXY100C2 PO; +DOXY100C41 PO; -FURO-144 PO; +FURO40TA5 PO; +LEVO500T2 PO
--- NOTE | 2019-08-11 21:34 | NUR ---
PATIENT CAME TO ER BED 10 C/O BILATERAL LOWER LEG SWELLING. PATIENT STATES "I HAVE LYMPHEDEMA". PATIENT ALSO STATES THAT HE HAD A BAD SLIP AND FALL ABOUT 10 YEARS AGO, AND NOW HE HAS CHRONIC LOWER BACK PAIN, LEFT ACHILLES PAIN, AND RIGHT KNEE PAIN. AAOX4. NO SOB. BREATHING EVENLY AND UNLABORED ON 2L OF N/C 99% O2. CONNECTED TO REEL WINDER.
--- NOTE | 2019-08-11 21:37 | NUR ---
PATIENT'S FACE CLEANED.
[2019-08-11 22:12] LABS: BASOPHILS % (AUTO) 0.4 % (0.0-2.0); EOSINOPHILS % (AUTO) 1.1 % (0.0-6.0); HEMATOCRIT 40 % (39-51); HEMOGLOBIN 13.3 g/dL (13.5-17.5); LYMPHOCYTES # (AUTO) 1.3 /CMM (0.8-4.8); LYMPHOCYTES % (AUTO) 23.9 % (20.0-44.0); MEAN CORPUSCULAR HGB CONC 33 g/dl (31.0-36.0); MEAN CORPUSCULAR VOLUME 90 fL (80-96); MONOCYTES # (AUTO) 0.5 /CMM (0.1-1.30); MONOCYTES % (AUTO) 8.9 % (2.0-12.0); NEUTROPHILS # (AUTO) 3.6 /CMM (1.8-8.9); NEUTROPHILS % (AUTO) 65.7 % (43.0-81.0); PLATELET COUNT (AUTO) 226 /CMM (150-450); RED BLOOD CELL COUNT(AUTO) 4.41 MIL/uL (4.5-6.0); WHITE BLOOD COUNT (AUTO) 5.5 K/uL (4.3-11.0)
[2019-08-11 22:22] LABS: APPEARANCE,URINE Clear (CLEAR); BILIRUBIN,URINE SMALL (NEGATIVE); BLOOD, URINE Negative Ery/uL (NEGATIVE); COLOR,URINE Yellow (YELLOW); KETONES,URINE 15 (NEGATIVE); LEUKOCYTE ESTERASE ,URINE Negative (NEGATIVE); NITRITE, URINE Negative (NEGATIVE); PROTEIN,URINE Negative (NEGATIVE); UGLUCOSE Negative (NEGATIVE); UROBILINOGEN,URINE 0.2 EU/dL (0.2)
[2019-08-11 22:27] LABS: CALCIUM, SERUM 9.3 mg/dL (8.5-10.1); CARBON DIOXIDE 26 mmol/L (21-32); CHLORIDE 103 mmol/L (98-107); CREATININE 0.8 mg/dL (0.6-1.3); GLUCOSE 98 mg/dL (74-106); SODIUM SERUM 137 mmol/L (136-145); UREA NITROGEN, BLOOD 16 mg/dL (7-18)
[2019-08-11] MEDS ORDERED: PIPERACILLIN /TAZOBACTAM 3.375 G in IV D5W 50 ML IV ONE (22:30)
[2019-08-11] MEDS ORDERED: FUROSEMIDE 40 MG/4 ML VIAL IV ONE (22:30)
[2019-08-11] MEDS ORDERED: PIPERACILLIN /TAZOBACTAM 3.375 G VIAL IV ONE (22:33)
[2019-08-11 22:34] LABS: ALANINE AMINOTRANSFERASE 11 U/L (12-78); ALBUMIN 3.4 g/dL (3.4-5.0); ALKALINE PHOSPHATASE 86 U/L (46-116); ASPARTATE AMINOTRANSFERASE 13 U/L (15-37); B-TYPE NATRIURETIC PEPTIDE 32 PG/ML (0-125); BILIRUBIN,DIRECT 0.1 mg/dL (0.0-0.2); BILIRUBIN,TOTAL 0.5 mg/dL (0.2-1.0); TOTAL PROTEIN, SERUM 6.9 g/dL (6.4-8.2)
[2019-08-11] MEDS ORDERED: FUROSEMIDE 40 MG/4 ML VIAL ONE (22:39)
--- NOTE | 2019-08-11 22:42 | NUR ---
ROB ANNE AT BEDSIDE FOR EVALUATION.
--- NOTE | 2019-08-11 22:55 | NUR ---
PATIENT URINATED, PATIENT CLEANED.
[2019-08-11] MEDS ORDERED: MORPHINE SULFATE INJ 2 MG/ML DISP.SYRIN IV PRN (23:00)
[2019-08-11] MEDS ORDERED: Z GUARD REMEDY 2 OZ OINT TP PRN (23:00)
[2019-08-11] MEDS ORDERED: MAG HYDROX/AL HYDROX/SIMETH 30 ML UDC PO PRN (23:00)
[2019-08-11] MEDS ORDERED: ACETAMINOPHEN 325 MG TABLET PO PRN (23:00)
[2019-08-11] MEDS ORDERED: HYDROCODONE/APAP 5/325MG 1 EACH TABLET PO PRN (23:00)
[2019-08-11] MEDS ORDERED: MAGNESIUM HYDROXIDE 30 ML UDC PO PRN (23:00)
[2019-08-11] MEDS ORDERED: ONDANSETRON HCL/PF 4 MG/2 ML VIAL IVP PRN (23:00)
--- NOTE | 2019-08-11 23:03 | NUR ---
BED ASSIGNMENT 316-1
--- NOTE | 2019-08-11 23:15 | NUR ---
REPORT GIVEN TO CARMINA RIDDLE FOR NADIA.
[2019-08-11 23:25] VITALS: BP 124/81
--- NOTE | 2019-08-11 23:25 | NUR ---
MS DIPPER CLOCK AND WATCH HANDS NOTE RECEIVED PATIENT VIA GURNEY. TRANSFERRED TO BED. A/OX4. TOLERATING ROOM AIR. RESPIRATIONS ARE EVEN AND UNLABORED. NO S/S SOB NOTED. NO C/O PAIN AT THIS TIME. IN NO APPARENT DISTRESS. IV ACCES IN RAC#20 PATENT AND SALINE LOCKED. AIR CONDITIONING UNIT ASSEMBLER OBTAINED VITAL SIGNS AND BELONGINGS LIST. INATAL PHYSICAL ASSESSMENT COMPLETED. SKIN ASSESSMENT COMPLETED AND PICTURES PLACED IN CHART. BED IS LOW AND LOCKED, HOB ELEVATED IN SEMI FOWLERS, SIDE RIALS UP X2. THOMAS LIGHT WITHIN REACH. WILL CONTINUE TO MONITOR.
[2019-08-11] MEDS ORDERED: LORAZEPAM 1 MG TABLET PO PRN (23:30)
[2019-08-11] MEDS ORDERED: CLONIDINE HCL 0.1 MG TABLET PO PRN (23:30)
[2019-08-11] MEDS ORDERED: VANCOMYCIN 1.75 GM in IV NS 0.9% 500 ML IV ONE (23:45)
[2019-08-12] MEDS ORDERED: VANCOMYCIN 1 GM VIAL ONE (00:07)
[2019-08-12] MEDS: ENOXAPARIN SODIUM 40 MG/0.4 ML DISP.SYRIN SQ SCH ×2 (00:43→21:40)
--- NOTE | 2019-08-12 02:56 | NUR ---
MS RN NOTE ADMINISTERED PRN NORCO 5/325 FOR PAIN 10/03 IN BLE. WILL CONTINUE TO MONITOR.
[2019-08-12 06:21] LABS: BASOPHILS % (AUTO) 0.4 % (0.0-2.0); EOSINOPHILS % (AUTO) 1.9 % (0.0-6.0); HEMATOCRIT 38 % (39-51); HEMOGLOBIN 12.6 g/dL (13.5-17.5); LYMPHOCYTES # (AUTO) 1.6 /CMM (0.8-4.8); LYMPHOCYTES % (AUTO) 25.3 % (20.0-44.0); MEAN CORPUSCULAR HGB CONC 33 g/dl (31.0-36.0); MEAN CORPUSCULAR VOLUME 90 fL (80-96); MONOCYTES # (AUTO) 0.7 /CMM (0.1-1.30); MONOCYTES % (AUTO) 11.9 % (2.0-12.0); NEUTROPHILS # (AUTO) 3.8 /CMM (1.8-8.9); NEUTROPHILS % (AUTO) 60.5 % (43.0-81.0); PLATELET COUNT (AUTO) 198 /CMM (150-450); RED BLOOD CELL COUNT(AUTO) 4.24 MIL/uL (4.5-6.0); WHITE BLOOD COUNT (AUTO) 6.2 K/uL (4.3-11.0)
[2019-08-12 06:48] LABS: ALANINE AMINOTRANSFERASE < 6 U/L (12-78); ALBUMIN 3.1 g/dL (3.4-5.0); ALKALINE PHOSPHATASE 71 U/L (46-116); ASPARTATE AMINOTRANSFERASE 12 U/L (15-37); BILIRUBIN,TOTAL 0.5 mg/dL (0.2-1.0); CALCIUM, SERUM 8.5 mg/dL (8.5-10.1); CARBON DIOXIDE 30 mmol/L (21-32); CHLORIDE 104 mmol/L (98-107); CREATININE 0.8 mg/dL (0.6-1.3); GLUCOSE 84 mg/dL (74-106); PHOSPHORUS 4.7 mg/dL (2.5-4.9); POTASSIUM 3.7 mmol/L (3.5-5.1); SODIUM SERUM 142 mmol/L (136-145); TOTAL PROTEIN, SERUM 6.2 g/dL (6.4-8.2); UREA NITROGEN, BLOOD 15 mg/dL (7-18)
[2019-08-12] MEDS ORDERED: FEE PK DOSING 1 MIN EA MC ONE (07:13)
--- NOTE | 2019-08-12 07:38 | NUR ---
MS RN CLOSING NOTE PATIENT IN BED. A/OX4. REMAINS TOLERATING ROOM AIR. RESPIRATIONS ARE EVEN AND UNLABORED. NO SOB NOTED. MANAGED PAIN WITH NORCO 5/325. NO DISTRESS NOTED. IV ACCES MAINTAINED IN RAC#20 PATENT AND SALINE LOCKED. BED IS LOW AND LOCKED, HOB ELEVATED IN SEMI FOWLERS, SIDE RIALS UP X2. THOMAS LIGHT WITHIN REACH. WILL ENDORSE TO NEXT SHIFT.
--- NOTE | 2019-08-12 07:40 | NUR ---
MS/RN Opening note Patient received from assembler 1st shift. A/O X4, vitals signs stable, denies any pain or discomfort at this time. Bilateral lower extremity cellulitis noted, legs elevated on two pillows to prevent further edema. Side rails X3 in upright position, brakes locked, call light within reach. Will endorse to assembler 1st shift.
[2019-08-12 08:00] VITALS: BP 114/54
[2019-08-12] MEDS ORDERED: FUROSEMIDE 40 MG TABLET PO SCH (09:00)
--- NOTE | 2019-08-12 09:14 | NUR ---
WOUND CARE CONSULT: PT PRESENTS WITH RASH TO BUTTOCKS AND DISCOLORATION, BILATERAL LOWER LEG EDEMA WITH REDNESS AND PEELING SKIN TO FEET AND LOWER LEGS, PRESENT ON ADMISSION. RECOMMENDATIONS MADE FOR SKIN PROTECTION. DISCUSSED WITH NURSING STAFF. WILL SEE PRN. HOPPER IN AGREEMENT WITH PLAN OF CARE. [facility]. CURRENT RAMIREZ SCORE IS 15. Addendum: 08/12/19 at 0917 by JANE HOUSTON WNDNU Amended: Links added.
[2019-08-12] MEDS: PANTOPRAZOLE 40 MG TABLET.DR PO SCH (09:35)
[2019-08-12] MEDS: VANCOMYCIN 1 GM in IV D5W 250ml IV SCH ×2 (09:36→16:36)
--- NOTE | 2019-08-12 10:15 | NUR ---
MS/RN S/B Dr Escobar Seen by Dr Escobar - dipak chin.
[2019-08-12 16:00] VITALS: BP 125/73
[2019-08-12] MEDS: CLOTRIMAZOLE 1% 15 GM TUBE TP SCH ×2 (16:36→16:37)
[2019-08-12] MEDS: FUROSEMIDE 40 MG/4 ML VIAL IV SCH (16:37)
--- NOTE | 2019-08-12 17:00 | NUR ---
MS/RN Vancomycin Vancomycin hung as ordered, no levels due at this time.
--- NOTE | 2019-08-12 18:31 | NUR ---
MS/RN End note Patient remains in stable condition, all medications administered as ordered. Vancomycin trough to be drawn tomorrow morning at 0900. Time allowed for all questions and concerns to be addressed. Will endorse to cage shift manager.
--- NOTE | 2019-08-12 19:30 | NUR ---
MS RN OPENING NOTE RECEIVED PATIENT IN BED. A/OX4. TOLERATING ROOM AIR. RESPIRATIONS ARE EVEN AND UNLABORED. NO S/S SOB NOTED. NO C/O PAIN AT THIS TIME. IN NO APPARENT DISTRESS. IV ACCESS IN RAC#20 PATENT AND SALINE LOCKED. BED IS LOW AND LOCKED, HOB ELEVATED IN SEMI FOWLERS, SIDE RIALS UP X2. THOMAS LIGHT WITHIN REACH. WILL CONTINUE TO MONITOR. .
[2019-08-12 20:00] VITALS: BP 117/69
[2019-08-13] MEDS: VANCOMYCIN 1 GM in IV D5W 250ml IV SCH ×3 (01:20→17:05)
--- NOTE | 2019-08-13 04:51 | NUR ---
MS RN NOTE CALLED TRANSITIONS RN CARE COORDINATOR MD FOR ORDER FOR CONDOM CATHETER D/T PATIENT NOT ABLE TO HOLD URINAL ALONE, HAVING ROTARY FILTER OPERATOR HOLD URINAL AND PRIVATE. PATIENT IS ALSO ON LASIX. TELEPHONE ORDER OK TO PLACE CONDOM CATHETER. TELEPHONE ORDER READ BACK NOTED AND CARRIED OUT. WILL CONTINUE TO MONITOR.
[2019-08-13] MEDS: PANTOPRAZOLE 40 MG TABLET.DR PO SCH (06:32)
--- NOTE | 2019-08-13 07:30 | NUR ---
MS RN CLOSING NOTE PATIENT IN BED. A/OX4. TOLERATING ROOM AIR. RESPIRATIONS ARE EVEN AND UNLABORED. NO SOB NOTED. NO C/O PAIN T/O SHIFT. NO DISTRESS. IV ACCESS MAINTAINED IN RAC#20 PATENT AND SALINE LOCKED. CONDOM CATHETER IS PLACED, DRAINING TO GRAVITY. BED IS LOW AND LOCKED, HOB ELEVATED IN SEMI FOWLERS, SIDE RIALS UP X2. THOMAS LIGHT WITHIN REACH. WILL ENDORSE TO NEXT SHIFT
[2019-08-13 07:32] LABS: BASOPHILS % (AUTO) 0.3 % (0.0-2.0); EOSINOPHILS % (AUTO) 3.1 % (0.0-6.0); HEMATOCRIT 39 % (39-51); HEMOGLOBIN 12.8 g/dL (13.5-17.5); LYMPHOCYTES # (AUTO) 1.6 /CMM (0.8-4.8); MEAN CORPUSCULAR HGB CONC 33 g/dl (31.0-36.0); MEAN CORPUSCULAR VOLUME 91 fL (80-96); MONOCYTES # (AUTO) 0.6 /CMM (0.1-1.30); MONOCYTES % (AUTO) 12.3 % (2.0-12.0); NEUTROPHILS # (AUTO) 2.2 /CMM (1.8-8.9); NEUTROPHILS % (AUTO) 48.3 % (43.0-81.0); PLATELET COUNT (AUTO) 181 /CMM (150-450); RED BLOOD CELL COUNT(AUTO) 4.31 MIL/uL (4.5-6.0); WHITE BLOOD COUNT (AUTO) 4.5 K/uL (4.3-11.0)
[2019-08-13 08:00] VITALS: BP 121/74
[2019-08-13] MEDS: FUROSEMIDE 40 MG/4 ML VIAL IV SCH ×2 (08:26→17:05)
[2019-08-13] MEDS: CLOTRIMAZOLE 1% 15 GM TUBE TP SCH ×2 (08:29→17:23)
--- NOTE | 2019-08-13 09:00 | NUR ---
MS/RN Medications Morning medications administered as ordered.
--- NOTE | 2019-08-13 09:19 | NUR ---
MS/RN Stephie level Vanco trough 14, todays dose to be administered as ordered.
--- NOTE | 2019-08-13 11:00 | NUR ---
MS/care provider Wound care as ordered, heels off loaded on pillows. Will be turned and repositioned every 2-3 hours throughout shift to prevent skin breakdown.
[2019-08-13 13:53] LABS: CALCIUM, SERUM 8.6 mg/dL (8.5-10.1); CREATININE 0.6 mg/dL (0.6-1.3); POTASSIUM 4.2 mmol/L (3.5-5.1)
[2019-08-13 16:00] VITALS: BP 113/68
--- NOTE | 2019-08-13 17:00 | NUR ---
MS/RN Stephie mahoney as ordered, no level scheduled at t his time.
--- NOTE | 2019-08-13 18:49 | NUR ---
MS/RN End note Patient remains in stable condition, no new needs or concerns. 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
--- NOTE | 2019-08-13 19:20 | NUR ---
MS RN OPENING NOTES RECEIVED PATIENT RESTING IN BED COMFORTABLY; A/OX4; BREATHING EVEN AND UNLABORED; NO SOB NOTED; PATIENT TOLERATING ROOM AIR WELL; R AC #20 SL INTACT AND PATENT; FLUSHING WELL; NO S/S OF REDNESS OR INFILTRATION; BLE CELLULITIS NOTED; SAFETY PRECAUTIONS IMPLEMENTED; BED LOCKED IN LOW POSITION; SIDE RAILS X2; CALL LIGHT WITHIN REACH; WILL CONT TO MONITOR
[2019-08-13 20:00] VITALS: BP 129/74
[2019-08-13] MEDS: ENOXAPARIN SODIUM 40 MG/0.4 ML DISP.SYRIN SQ SCH (21:24)
[2019-08-14] MEDS: VANCOMYCIN 1 GM in IV D5W 250ml IV SCH ×3 (00:39→16:52)
--- NOTE | 2019-08-14 04:22 | NUR ---
MS RN NOTES CONDOM CATH RE-APPLIED; WILL CONT TO MONITOR
[2019-08-14] MEDS: PANTOPRAZOLE 40 MG TABLET.DR PO SCH (06:40)
--- NOTE | 2019-08-14 06:47 | NUR ---
MS RN CLOSING NOTES PATIENT RESTING IN BED COMFORTABLY; A/OX4; BREATHING EVEN AND UNLABORED; NO SOB NOTED; PATIENT TOLERATING ROOM AIR WELL; R AC #20 SL INTACT AND PATENT; FLUSHING WELL; NO S/S OF REDNESS OR INFILTRATION; ALL NEEDS RENDERED; PATIENT ABLE TO MAKE NEEDS KNOWN; [facility] CATH KEEPS FALLING OFF PLACE; PER PATIENT IT HAS BEEN ONGOING SINCE THEY HAD STARTED HIS [facility] CATH; SAFETY PRECAUTIONS IMPLEMENTED; BED LOCKED IN LOW POSITION; SIDE RAILSX2; CALL LIGHT WITHIN REACH; WILL ENDORSE NADIA TO ONCOMING SHIFT
--- NOTE | 2019-08-14 07:56 | NUR ---
MS RN OPENING NOTES PATIENT IN BED RESTING COMFORTABLY. PATIENT IN NO ACUTE DISTRESS. NO SOB NOTED. PATIENT BREATHING IS EVEN AND UNLABORED. PATIENT STATES NO PAIN AT THIS TIME. PATIENT BED ALARM IS ON. SAFETY PRECAUTIONS IN PLACE. PATIENT BED IS LOCKED AND IN LOWEST POSITION. CALL LIGHT WITHIN REACH. WILL CONTINUE TO MONITOR.
[2019-08-14 08:00] VITALS: BP 125/87
[2019-08-14 08:31] LABS: BASOPHILS % (AUTO) 0.4 % (0.0-2.0); CREATININE 0.7 mg/dL (0.6-1.3); EOSINOPHILS % (AUTO) 3.4 % (0.0-6.0); HEMATOCRIT 44 % (39-51); HEMOGLOBIN 14.7 g/dL (13.5-17.5); LYMPHOCYTES # (AUTO) 1.8 /CMM (0.8-4.8); LYMPHOCYTES % (AUTO) 32.1 % (20.0-44.0); MEAN CORPUSCULAR HGB CONC 33 g/dl (31.0-36.0); MEAN CORPUSCULAR VOLUME 90 fL (80-96); MONOCYTES # (AUTO) 0.7 /CMM (0.1-1.30); MONOCYTES % (AUTO) 11.9 % (2.0-12.0); NEUTROPHILS % (AUTO) 52.2 % (43.0-81.0); PLATELET COUNT (AUTO) 198 /CMM (150-450); POTASSIUM 4.4 mmol/L (3.5-5.1); RED BLOOD CELL COUNT(AUTO) 4.91 MIL/uL (4.5-6.0); WHITE BLOOD COUNT (AUTO) 5.7 K/uL (4.3-11.0)
[2019-08-14] MEDS: FUROSEMIDE 40 MG/4 ML VIAL IV SCH ×2 (09:17→16:52)
[2019-08-14] MEDS: CLOTRIMAZOLE 1% 15 GM TUBE TP SCH ×2 (09:17→16:53)
[2019-08-14 16:00] VITALS: BP 117/67
--- NOTE | 2019-08-14 19:38 | NUR ---
MS RN CLOSING NOTES PATIENT IN BED RESTING COMFORTABLY. PATIENT IN NO ACUTE DISTRESS. NO SOB NOTED. PATIENT BREATHING IS EVEN AND UNLABORED. PATIENT BED ALARM IS ON. HOB IS ELEVATED. PATIENT KEPT CLEAN, DRY AND COMFORTABLE THROUGHOUT SHIFT. NEEDS AND CONCERNS ADDRESSED. SAFETY PRECAUTIONS IN PLACE. PATIENT BED IS LOCKED AND IN LOWEST POSITION. CALL LIGHT WITHIN REACH. WILL ENDORSE CARE TO PM SHIFT FOR NADIA.
--- NOTE | 2019-08-14 19:41 | NUR ---
MS RN OPENING NOTES RECEIVED PATIENT RESTING IN BED COMFORTABLY; A/OX4; BREATHING EVEN AND UNLABORED; NO SOB NOTED; PATIENT TOLERATING ROOM AIR WELL; L UPPER ARM #20 INTACT AND PATENT; FLUSHING WELL; NO S/S OF REDNESS OR INFILTRATION; WILL CONT PLAN OF CARE; SAFETY PRECAUTIONS IMPLEMENTED; BED LOCKED IN LOW POSITION; SIDE RAILS X2; CALL LIGHT WITHIN REACH; WILL CONT TO MONITOR
[2019-08-14 20:00] VITALS: BP 111/72
[2019-08-14] MEDS: ENOXAPARIN SODIUM 40 MG/0.4 ML DISP.SYRIN SQ SCH (21:05)
[2019-08-15] MEDS: VANCOMYCIN 1 GM in IV D5W 250ml IV SCH ×3 (00:17→17:42)
--- NOTE | 2019-08-15 03:36 | NUR ---
MS RN NOTES [facility] CATH KEEPS FALLING OUT OF PLACE SINCE STARTED; PATIENT HAS HAD [facility] CATH RE-APPLIED SEVERAL TIMES; PATIENT REPORTED HE IS OKAY WITH USING DIAPER; DIAPER CHANGED X2 THIS SHIFT AND PATIENT HAD 1 BM; WILL CONT TO MONITOR
--- NOTE | 2019-08-15 06:49 | NUR ---
MS RN CLOSING NOTES PATIENT RESTING IN BED COMFORTABLY; A/OX4; BREATHING EVEN AND UNLABORED; NO SOB NOTED; PATIENT TOLERATING ROOM AIR WELL; ABLE TO MAKE NEEDS KNOWN; L UA #20 SL INTACT AND PATENT; FLUSHING WELL; NO S/S OF REDNESS OR INFILTRATION NOTED; ALL NEEDS RENDERED; SAFETY PRECAUTIONS IMPLEMENTED; BED LOCKED IN LOW POSITION; SIDE RAILS X2; CALL LIGHT WITHIN REACH; WILL ENDORSE NADIA TO ONCOMING NURSE
--- NOTE | 2019-08-15 07:30 | NUR ---
MS RN NOTES RECEIVED PATIENT ASLEEP, AROUSABLE TO VERBAL AND TACTILE STIMULI. NO SOB. DENIES ANY C/O PAIN NOR DISCOMFORT. LEFT UPPER ARM SL #20 INTACT AND PATENT. BED IN LOWEST POSITION, LOCKED. BED ALARM ON. BLE ELEVATED WITH ERYTHEMA AND PEELING SKIN OBSERVED. CALL LIGHT WITHIN REACH. ABLE TO VERBALIZE NEEDS.
[2019-08-15 08:00] VITALS: BP 125/74
[2019-08-15] MEDS: FUROSEMIDE 40 MG/4 ML VIAL IV SCH ×2 (08:27→17:42)
[2019-08-15] MEDS: PANTOPRAZOLE 40 MG TABLET.DR PO SCH (08:27)
[2019-08-15] MEDS: CLOTRIMAZOLE 1% 15 GM TUBE TP SCH ×2 (08:31→17:43)
[2019-08-15 08:53] LABS: CALCIUM, SERUM 9.1 mg/dL (8.5-10.1); CREATININE 0.8 mg/dL (0.6-1.3); POTASSIUM 4.4 mmol/L (3.5-5.1)
[2019-08-15 16:00] VITALS: BP 122/67
--- NOTE | 2019-08-15 19:00 | NUR ---
MS RN NOTES ALERT AND ORIENTED X4. NO S/S OF RESPIRATORY DISTRESS. DENIES ANY C/O PAIN NOR DISCOMFORT. LEFT UPPER ARM SL #20 INTACT AND PATENT. DENIES ANY C/O TO BLE. BED IN LOWEST POSITION, LOCKED. BED ALARM ON. CALL LIGHT WITHIN REACH. ABLE TO VERBALIZE NEEDS. IN NO APPARENT DISTRESS.
[2019-08-15 20:00] VITALS: BP 121/72
--- NOTE | 2019-08-15 20:00 | NUR ---
MS ERIC INITIAL NOTES Received report from am nurse Jose R and seen pt in bed on semi fowlers position with side rails x2 up. bilateral lower elevated on pillows. still with edema noticed cellulitis, skin warm and dry to touch. Pt denies any pain or any discomfort. Heplock at this time patent and intact. No SOB noted on room air. Pt concerned as of this time is he doesn't want to go to nursing facility because he's worried of covid. will continue monitoring. place call light at reach.
[2019-08-15] MEDS: ENOXAPARIN SODIUM 40 MG/0.4 ML DISP.SYRIN SQ SCH (21:52)
--- NOTE | 2019-08-16 01:00 | NUR ---
ms lakeisha notes pt awake and watching tv at this time. denies any pain or any discomfort. Vancomycin IVP bag will hung by another nurse as ordered. will continue monitoring. place call light at reach.
[2019-08-16] MEDS: VANCOMYCIN 1 GM in IV D5W 250ml IV SCH ×3 (01:05→17:00)
--- NOTE | 2019-08-16 07:12 | NUR ---
ms agricultural plow operator closing notes pt sleeping comfortably in bed without any distress noted. stable rigo the night . slept well but called every time he's wet. Morning care done and all needs met. kept him warm and comfortable at all times will endorse incoming nurse for continuity of care. place call light at reach.
--- NOTE | 2019-08-16 07:30 | NUR ---
MS/RN NOTE THE PATIENT IS RECEIVED IN BED. PATIENT IS ALERT AND ORIENTED X4. IN ROOM AIR AND DENIES SOB. RESPIRATION REGULAR AND UNLABORED. STATES BLE PAIN 2/10 BUT DOES NOT WANT PAIN MEDICATION AT THIS TIME. LEFT UPPER ARM G 20 IV LINE PATENT AND SALINE LOCKED. BED LOW AND LOCKED. SIDE RAILS UP X3. CALL LIGHT WITHIN REACH. WILL CONTINUE TO MONITOR.
[2019-08-16 07:45] LABS: CALCIUM, SERUM 9.5 mg/dL (8.5-10.1); CREATININE 0.8 mg/dL (0.6-1.3)
[2019-08-16 08:00] VITALS: BP 120/71
[2019-08-16] MEDS: FUROSEMIDE 40 MG/4 ML VIAL IV SCH ×2 (09:25→17:00)
[2019-08-16] MEDS: PANTOPRAZOLE 40 MG TABLET.DR PO SCH (09:26)
[2019-08-16] MEDS: CLOTRIMAZOLE 1% 15 GM TUBE TP SCH ×2 (09:37→17:01)
[2019-08-16 16:00] VITALS: BP_SYST 112; BP_SYST 138; BP_DIAS 68; BP_DIAS 69
--- NOTE | 2019-08-16 18:17 | NUR ---
MS/RN NOTE THE PATIENT IS ALERT AND ORIENTED X4. DENIES PAIN. BREATHING EVEN AND UNLABORED. DENIES SOB. THE PATIENT IS IN NO APPARENT DISTRESS. LEFT UPPER ARM G 20 PATENT AND SALINE LOCKED. BED LOW AND LOCKED. SIDE RAILS UP X3. CALL LIGHT WITHIN REACH. WILL ENDORSE TO MANAGER MANAGING.
[2019-08-16 20:00] VITALS: BP 109/67
[2019-08-16] MEDS: ENOXAPARIN SODIUM 40 MG/0.4 ML DISP.SYRIN SQ SCH (22:09)
[2019-08-17] MEDS: VANCOMYCIN 1 GM in IV D5W 250ml IV SCH ×3 (00:52→16:24)
--- NOTE | 2019-08-17 06:34 | NUR ---
END OF SHIFT REPORT: RECEIVED REPORT FROM RORY RN AT 1940 LAST NIGHT. PT A/O X4 ON RA RESPIRATIONS EVEN AND UNLABORED. DISCUSSED PLAN OF ACRE TO PT. KEPT BLE OFFLOADED ON PILLOWS AT ALL TIMES, BLE EDEMA +2, PER PT IT WAS A LOT BETTER. IV ACCESS PATENT AND FLUSHING WELL, ON HL, NO S/S OF IV INFILTRATION NOTED. ON SQ LOVENOX, IV VANCO ADMINISTERED SCHEDULED, VANCO TROUGH FOR 0800AM. VS REMAINS STABLE, NEEDS ATTENDED, AM CARE AND COMPLETE LINEN CHANGE PROVIDED BY DAY TEST ENG. ACCEPTED AT [facility]. SAFETY PRECAUTIONS FOR FALL REMAINS ENGAGED, CALL LIGHT IN REACH, WILL ENDORSE TO DAY RN FOR CONTINUITY OF CARE.
[2019-08-17 06:38] LABS: CALCIUM, SERUM 9.2 mg/dL (8.5-10.1); CREATININE 0.8 mg/dL (0.6-1.3); POTASSIUM 3.7 mmol/L (3.5-5.1)
--- NOTE | 2019-08-17 07:30 | NUR ---
PT RECEIVED RESTING COMFORTABLY IN BED. NO S/S OR C/O PAIN OR DISTRESS NOTED. SIDE RAILS UP X2, CALL LIGHT LEFT WITHIN REACH. WILL CONTINUE PLAN OF CARE.
[2019-08-17 08:00] VITALS: BP 132/68
[2019-08-17] MEDS: PANTOPRAZOLE 40 MG TABLET.DR PO SCH (08:57)
[2019-08-17] MEDS: FUROSEMIDE 40 MG/4 ML VIAL IV SCH ×2 (08:57→16:24)
[2019-08-17] MEDS: CLOTRIMAZOLE 1% 15 GM TUBE TP SCH ×2 (08:58→16:25)
[2019-08-17 16:00] VITALS: BP 116/71
--- NOTE | 2019-08-17 18:33 | NUR ---
CHANGE OF SHIFT REPORT PT RESTING COMFORTABLY IN BED. NO S/S OR C/O PAIN OR DISTRESS NOTED. SIDE RAILS UP X2, CALL LIGHT LEFT WITHIN REACH. PT KEPT CLEAN, DRY, AND COMFORTABLE. NO SIGNIFICANT CHANGES SINCE PREVIOUS SHIFT. WILL GIVE REPORT TO LEWIS RIDDLE.
[2019-08-17 20:00] VITALS: BP 118/73
--- NOTE | 2019-08-17 21:23 | NUR ---
RN NOTES: PT HARD STICK MULTIPLE IV ATTEMPTS, ON IV VANCO QHRS, NOTIFIED EPIC MD ACCESS REPRESENTATIVE, WITH TELEPHONE ORDER RECEIVED OKAY TO INSERT MIDLINE, NOTIFIED RN SUP SHERI MOORE ;PICC LINE RN CURRENTLY IN THE UNIT, WILL DO MIDLINE
[2019-08-17] MEDS: ENOXAPARIN SODIUM 40 MG/0.4 ML DISP.SYRIN SQ SCH (21:52)
[2019-08-18] MEDS: VANCOMYCIN 1 GM in IV D5W 250ml IV SCH ×3 (00:06→16:28)
--- NOTE | 2019-08-18 06:58 | NUR ---
end of shift report: pt remains a/o x3, cooperative and compliant. ble kept offloaded on pillows. jermaine midline remains in placed patent and flushing well, on hl, no s/s of iv infiltration noted. am care and completed linen change provided. all due meds administered. vs remains stable, needs attended. safety precautions for fall remains engaged, call light in reach, will endorse to day rn for continuity of care.
--- NOTE | 2019-08-18 07:53 | NUR ---
rn notes Patient received on room air, a/o x4 at this time. patient denies pain at this time. states that the swelling on his leg is down as well compared to when he first came here. bed at the lowest setting, call light within reach, side rails up x2.
[2019-08-18 08:29] LABS: CALCIUM, SERUM 9.1 mg/dL (8.5-10.1); CREATININE 0.8 mg/dL (0.6-1.3); POTASSIUM 3.6 mmol/L (3.5-5.1)
[2019-08-18] MEDS: PANTOPRAZOLE 40 MG TABLET.DR PO SCH (08:38)
[2019-08-18] MEDS: FUROSEMIDE 40 MG/4 ML VIAL IV SCH ×2 (08:39→16:28)
[2019-08-18] MEDS: CLOTRIMAZOLE 1% 15 GM TUBE TP SCH ×2 (08:49→16:29)
[2019-08-18 09:43] VITALS: BP 122/73
[2019-08-18 17:08] VITALS: BP 106/50
[2019-08-18 17:09] VITALS: BP 146/102
--- NOTE | 2019-08-18 18:22 | NUR ---
rn notes Patient remains on room air, no sob noted, a/o x4 and has BLE cellulitis at this time, but states that it is getting better. ANDRES midline present. [facility] Monday. Patient feels sensation on both legs. Bed at the lowest setting, call light within reach, side rails up x2.
[2019-08-18 20:00] VITALS: BP 115/61
[2019-08-18 20:13] VITALS: BP 115/61
[2019-08-18] MEDS: ENOXAPARIN SODIUM 40 MG/0.4 ML DISP.SYRIN SQ SCH (21:47)
[2019-08-19] MEDS: VANCOMYCIN 1 GM in IV D5W 250ml IV SCH ×2 (00:24→09:04)
--- NOTE | 2019-08-19 06:43 | NUR ---
end of shift report: received report from karina rn last night at 1900. pt iv atb and lovenox administered as scheduled. snacks provided to pt. ble kept offloaded on pillows, edema improved compared to previous photos. am care and linen change provided. daily weight. jermaine midlline remains patent and flushing well, on hl. all needs attended. vs remains stable, remains afebrile. possible dc today, accepted to [facility]. safety precautions for fall remains engaged, call light in reach, will endorse to day rn for continuity of care.
--- NOTE | 2019-08-19 07:05 | NUR ---
MS RN OPENING NOTES RECEIVED PT RESTING COMFORTABLY IN BED. AO X4. NO S/S OF ANY ACUTE DISTRESS. NO C/O PAIN AT THIS TIME. ANDRES MIDLINE, INTACT AND PATENT. SAFETY PRECAUTIONS IN PLACE, SIDE RAILS UP X2, CALL LIGHT WITHIN REACH., HOB ELEVATED TO SEMI FOWLERS POSITION. WILL CONTINUE TO MONITOR
[2019-08-19] MEDS: PANTOPRAZOLE 40 MG TABLET.DR PO SCH (07:51)
[2019-08-19 08:26] VITALS: BP 140/75
[2019-08-19] MEDS: FUROSEMIDE 40 MG/4 ML VIAL IV SCH (09:05)
[2019-08-19] MEDS: CLOTRIMAZOLE 1% 15 GM TUBE TP SCH (09:05)
--- NOTE | 2019-08-19 14:55 | NUR ---
MS STENOTYPIST NOTES PT DISCHARGED AT THIS TIME TO [facility] ROOM 35C. REPORT CALLED IN TO JANESSA GROSS. PT IS STABLE. VS STABLE. NO S/S OF ANY ACUTE DISTRESS. PT KEPT CLEAN AND DRY. ALL CARE AND MEDICATIONS ADMINISTERED PER ORDER. ANDRES MIDLINE INTACT, PATENT AND LEFT IN PLACE FOR ANTIBIOTIC THERAPY. CHARGE NURSE MADE AWARE AND JANESSA GROSS AT [facility] MADE AWARE TO DC ANDRES MIDLINE AFTER ANTIBIOTIC THERAPY. PT DISCHARGE INSTRUCTIONS PROVIDED. PT VERBALIZED UNDERSTANDING. ALL BELONGINGS ACCOUNTED, DOCUMENTED IN CHART, PICTURES TAKEN AND FILED. PT TRANSPORTED ON A GURNEY VIA AMBULANCE.
== END 2019-08-19 15:00 | DRG 383 ==
LOC: ER 21:24 → TELE 23:04 → MED 23:41
PROVIDERS: ADMIT Nurse Practitioner Acute Care; ATTEND Nurse Practitioner Acute Care
PROC: 05HY33Z Insertion of Infusion Device into Upper Vein, Percutaneous Approach (ICD-10-PCS; principal; 2019-08-17)
DX: L03.115 Cellulitis of right lower limb (principal); D68.59 Other primary thrombophilia; E66.01 Morbid (severe) obesity due to excess calories; I73.9 Peripheral vascular disease, unspecified; G62.9 Polyneuropathy, unspecified; B35.1 Tinea unguium; M48.00 Spinal stenosis, site unspecified; G89.29 Other chronic pain; I10 Essential (primary) hypertension; L03.116 Cellulitis of left lower limb; Z74.09 Other reduced mobility; Z87.828 Personal history of other (healed) physical injury and trauma; I89.0 Lymphedema, not elsewhere classified; Z79.899 Other long term (current) drug therapy; K59.00 Constipation, unspecified
CPT/HCPCS: 36410; 36415; 71045-TC; 80048-TC; 80053-TC; 80076-TC; 80202-TC; 81000-TC; 83605-TC; 83735-TC; 83880; 84100-TC; 84484-TC; 85025-TC; 85730-TC; 87040-TC; 87081-TC; 87086-TC; 93970-TC; 97110-TC; 97116-TC; 97530-TC; A4349; G0378; J1650; J1940; J2543; J3370; J7040; J7050; J7060